=== PATIENT | male | born 1985 ===

== ENCOUNTER 2021-09-06 14:04 | Emergency (ER) | payer BC ==
[2021-09-06] MEDS ORDERED: Bupivacaine 0.5% 10 ML SDV INJECT ONE (14:17)
--- NOTE | 2021-09-06 14:22 | EDM.PDOC ---
ED HPI GENERAL MEDICAL PROBLEM - General Chief Complaint: General Stated Complaint: TOOTH PAIN Time Seen by Provider: 09/06/21 14:13 Source of Information: Reports: Patient - History of Present Illness INITIAL COMMENTS - FREE TEXT/NARRATIVE: Abimael is a 35 y/o male who presents to the ER with a toothache. Has had issues with the same tooth in the past, but this AM it started hurting much more. Has tried to get into a dentist in past, but due to cost was not able to seek care. No fever. Reports the whole right side of his face hurts. Took Ibuprofen with little relief. 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, NSAIDS Right Upper Oral/Mouth Pain Score (Numeric/FACES): 10 - Related Data Allergies Allergy/AdvReac Type Severity Reaction Status Date / Time No Known Allergies Allergy Verified 09/06/21 14:11 Home Meds: Home Meds Amoxicillin 875 mg PO BID #20 tablet 09/06/21 [Rx] ED ROS GENERAL - Review of Systems Review Of Systems: See Below Constitutional: Reports: No Symptoms HEENT: Reports: Dental Pain Respiratory: Reports: No Symptoms Cardiovascular: Reports: No Symptoms Endocrine: Reports: No Symptoms GI/Abdominal: Reports: No Symptoms : Reports: No Symptoms Musculoskeletal: Reports: No Symptoms Skin: Reports: No Symptoms Neurological: Reports: No Symptoms Psychiatric: Reports: No Symptoms Hematologic/Lymphatic: Reports: No Symptoms Immunologic: Reports: No Symptoms ED EXAM, GENERAL - Physical Exam Exam: See Below General Appearance: Alert, WD/WN (Adult male, sitting quietly on cart. Obviosuly in pain.) Eye Exam: Bilateral Eye: PERRL Ears: Hearing Grossly Normal Nose: Normal Inspection, Normal Mucosa Throat/Mouth: Normal Inspection, Normal Lips, Normal Voice, Other (Note Tooth #7 is tender to touch, note cavity near gumline, no acbscess or drainage appreciated.) Head: Atraumatic, Normocephalic Respiratory/Chest: No Respiratory Distress Cardiovascular: Regular Rate, Rhythm GI/Abdominal: Soft (Male) Exam: Deferred Rectal (Males) Exam: Deferred Extremities: Normal Inspection, Normal Capillary Refill Neurological: Alert, Oriented, CN II-XII Intact Psychiatric: Normal Affect, Normal Mood Skin Exam: Warm, Dry, Intact, Normal Color Course - Vital Signs Text/Narrative:: 1414 The patient was seen by the INDUSTRIAL ELECTRICAL TECHNICIAN. Dental block was done. See Procedure Note. PROCEDURE NOTE: DENTAL BLOCK Consent for operation or procedure: Risks and benefits discussed with patient and consent obtained. Risks include facial paralysis, hematoma, and trismus (spasm of the jaw muscle. Benefits include pain control. Bupivacine 0.5%-2ml The distribution of the inferior alveolar nerve was identified. Lidocaine was injected into that region. A short time later adequate analgesia was obtained. Estimated Blood Loss: minimal Complications: The patient tolerated the procedure well without complications. Patient given start pack of Amoxicillin from the ER. Advised OTC pain meds as needed, along with APAP/Codeine. Written instructions were given and he left the ER in stable condition. Last Recorded V/S: Last Vital Signs Temp 37.3 C 09/06/21 14:05 Pulse 68 09/06/21 14:05 Resp 20 09/06/21 14:05 BP 118/74 09/06/21 14:05 Pulse Ox 99 09/06/21 14:05 - Orders/Labs/Meds Meds: Medications Discontinued Medications Generic Name Dose Route Start Last Admin Trade Name Wong PRN Reason Stop Dose Admin Bupivacaine HCl 10 ml 09/06/21 14:17 09/06/21 14:20 Bupivacaine 0.5% 10 Ml Sdv INJECT 09/06/21 14:18 10 ml ONETIME ONE Administration Departure - Departure Time of Disposition: 14:58 Disposition: Home, Self-Care 01 Condition: Good Clinical Impression: Pain due to dental caries - Discharge Information Prescriptions: Amoxicillin 875 mg PO BID #20 tablet Instructions: Dental Caries, Adult Forms: ED Department Discharge Additional Instructions: -Amoxicillin 875mg oral 2x daily for 10 days #20 (Rx) -Ibuprofen 400mg oral every 6 hours as needed for pain -Acetaminophen 325mg 3 tablets oral every 6 hours as needed for pain -APAP/Codeine 1-2 tablets oral every 4 hours as needed for pain #10(Rx) -Apply ice or heat to your cheek region for comfort -Eat soft foods that aren't extremely hot or cold -Call to get into a dentist [facility]. Follow up with your PCP for more pain meds. -Return to the ER if you have any further concerns Sepsis Event Note (ED) - Evaluation Sepsis Screening Result: No Definite Risk - Focused Exam Vital Signs: Vital Signs Temp Pulse Resp BP Pulse Ox 09/06/21 14:05 37.3 C 68 20 118/74 99 - Problem List & Annotations (1) Pain due to dental caries SNOMED Code(s): 81284020, 12424600 Code(s): K02.9 - DENTAL CARIES, UNSPECIFIED Status: Acute Current Visit: No Annotation/Comment:: Dental block done. Placed on Amoxicillin. Pain meds given, also use OCT meds. - Problem List Review Problem List Initiated/Reviewed/Updated: Yes - Assessment/Plan Plan: As above
== END 2021-09-06 15:05 | disposition home or self-care (01) ==
LOC: LL.ED 14:04
DX: K02.9 Dental caries, unspecified (principal)
CPT/HCPCS: 64400; 99282; J3490

== ENCOUNTER 2023-07-08 20:08 | Emergency (ER) | payer BC | END 2023-07-08 21:17 | disposition home or self-care (01) | LOC: LL.ED 20:08 | DX: S61.216A Laceration without foreign body of right little finger without damage to nail, initial encounter (principal); F17.210 Nicotine dependence, cigarettes, uncomplicated; W26.9XXA Contact with unspecified sharp object(s), initial encounter; Y92.59 Other trade areas as the place of occurrence of the external cause; Y99.0 Civilian activity done for income or pay | CPT/HCPCS: 12001; 99282 ==